=== PATIENT | female | born 1955 | race African-American/Black ===

== ENCOUNTER 2018-04-02 05:58 | Day surgery (SDC) | payer OTHER ==
[2018-03-25 16:46] VITALS: BMI 25.9
[2018-04-02] MEDS ORDERED: EPINEPHrine 1:1,000 1 MG/1 ML - 30ML VIAL (INJECTION) ONE (07:16)
[2018-04-02] MEDS ORDERED: methylPREDNISolone ACET (DEPO) 40 MG/1 ML VIAL ONE ×2 (07:16→08:38)
[2018-04-02] MEDS ORDERED: BUPIVACAINE HCL/PF 2.5 MG/ML - 30 ML VIAL IJ ONE (07:16)
[2018-04-02] MEDS ORDERED: MIDAZOLAM HCL 2 MG/2 ML SINGLE DOSE VIAL ONE ×2 (07:30→09:15)
[2018-04-02] MEDS ORDERED: ceFAZolin SODIUM 1 GM VIAL IVPB ONE (07:44)
[2018-04-02] MEDS ORDERED: SUCCINYLCHOLINE CHLORIDE 200 MG/10 ML VIAL ONE (07:45)
[2018-04-02] MEDS ORDERED: PROPOFOL 20 ML ONE ×2 (07:45)
[2018-04-02] MEDS ORDERED: LIDOCAINE HCL/PF 2% SDV 5ML VIAL ONE (07:52)
[2018-04-02] MEDS ORDERED: ONDANSETRON 4 MG/2 ML VIAL ONE ×2 (07:52→09:07)
[2018-04-02] MEDS ORDERED: ceFAZolin SODIUM 1 GM VIAL ONE (07:56)
[2018-04-02] MEDS ORDERED: DEXAMETHASONE SOD PHOSPHATE 4 MG/1 ML VIAL ONE (08:03)
[2018-04-02] MEDS ORDERED: methylPREDNISolone ACET (DEPO) 40 MG/1 ML VIAL NR ONE (08:32)
[2018-04-02] MEDS ORDERED: BUPIVACAINE HCL/PF 0.25% (2.5MG/ML) 10 ML VIAL IJ ONE (08:32)
[2018-04-02] MEDS ORDERED: oxyCODONE HCL 5 MG TABLET PO PRN (09:01)
[2018-04-02] MEDS ORDERED: ONDANSETRON 4 MG/2 ML VIAL IVPUSH PRN (09:01)
--- NOTE | 2018-04-02 09:13 | OP ---
Operative Note - Note: Operative Date: 04/02/18 Pre-Operative Diagnosis: Right knee medial meniscus tear. Right knee DJD Operation: Surgical arthroscopy right knee. Lateral plicae resection. Irrigation. Debridement Post-Operative Diagnosis: Other (No right knee medial meniscus tear; DJD; Lateral plicae) Surgeon: Jewel Middleton Window Cutter: Tahir Middleton Anesthesiologist/HEAD CHOPPER: Rosa Maria Ferreira Anesthesia: General Estimated Blood Loss (mls): 0 Fluid Volume Replaced (mls): 500 Operative Report Dictated: Yes
[2018-04-02] MEDS ORDERED: LACTATED RINGERS SOLUTION 1,000 ML IV SCH (09:15)
[2018-04-02] MEDS ORDERED: MONTELUKAST NA 10 MG TABLET PO SCH (10:00)
[2018-04-02] MEDS ORDERED: amLODIPine BESYLATE 5 MG TABLET (FP) PO SCH (10:00)
[2018-04-02] MEDS ORDERED: NEBIVOLOL 10 MG TABLET (FP) PO SCH (10:00)
[2018-04-02] MEDS ORDERED: DESVENLAFAXINE SUCCINATE 25 MG PO SCH (10:00)
[2018-04-02] MEDS ORDERED: BUDESONIDE/FORMETEROL FUMARATE 160/4.5 mcg INHALER IH SCH (10:00)
--- NOTE | 2018-04-02 10:00 | OP ---
DATE OF OPERATION: DATE OF DICTATION: 04/01/2018 SURGEON: Jewel Middleton MD INSIDE SALES MANAGER: Tahir Middleton MD PREOPERATIVE DIAGNOSIS: Medial meniscal tear, osteoarthritis knee. POSTOPERATIVE DIAGNOSIS: [place] level 1 osteoarthritis of right knee. ANESTHESIA: Spinal anesthesia with conscious sedation. OPERATION PERFORMED: 1. Arthroscopy to the right knee. 2. Right knee resection of plica. 3. Limited shaving chondroplasty. PROCEDURE: Patient correctly identified, brought to the operating room. Right lower extremity prepped, free draped in the routine manner with Betadine scrub solution, wiped with alcohol, and DuraPrep applied. The arthroscopic instrumentation was introduced into the knee. Diffuse fibrinous synovitis which was is mild noted. Synovitic material intruding into the medial joint surface on flexion/extension but on extension it subluxes itself out of the joint and is not an imposing force. The retropatellar surface revealed very subtle out of bridge level 1-2 changes. These were shaved using a [employer] shaver. The trochlea groove was normal. The lateral femoral condyle and medial lateral femoral condyle was normal. The tibial plateau, medially and laterally, were normal. The lateral compartment was difficult to negotiate but what was seen intraarticular of the lateral joint compartment appeared to be normal. Prolific synovitic material was noted throughout including ligamentum mucosa of the cruciate ligament. The medial compartment revealed the presence of normal joint line, normal medial meniscus, no tears noted. The popliteal hiatus was normal. The main finding was a thick plica on the lateral synovial area flapping up against the femoral condyle. This was resected using a Corrine shaver. The joint was thoroughly lavaged, instilled with Marcaine and steroid, and the portals were closed with 3-0 nylon. MD ZAK Montemayor/[id number] MTDD
[2018-04-02] MEDS ORDERED: oxyCODONE HCL 5 MG TABLET ONE (10:13)
[2018-04-02 10:34] VITALS: TEMP 98
[2018-04-02 13:18] VITALS: BP 112/79; PULSE 77
== END 2018-04-02 11:30 | disposition home or self-care (01) ==
LOC: FASU 05:58
PROVIDERS: ATTEND Orthopaedic Surgery Orthopaedic Surgery of the Spine
PROC: 0SBC4ZZ Excision of Right Knee Joint, Percutaneous Endoscopic Approach (ICD-10-PCS; 2018-04-02)
PROC: 0SBC4ZZ Excision of Right Knee Joint, Percutaneous Endoscopic Approach (ICD-10-PCS; principal; 2018-04-02 07:30)
DX: M17.11 Unilateral primary osteoarthritis, right knee (principal); M67.51 Plica syndrome, right knee
CPT/HCPCS: 94760

== ENCOUNTER 2019-01-26 16:58 | Inpatient (IN) | payer OTHER ==
[2019-01-20 11:38] VITALS: BMI 25.7
--- NOTE | 2019-01-26 12:45 | PN ---
Progress Note (short form) - Note Progress Note: 63F s/p RIGHT total knee replacement POD #0. -Pain control. -DVT PPx: -Chemical: Lovenox 30mg SQ BID x 6 weeks. -Mechanical: YOSHI's, SCD's. -Incentive spirometry q15 min. -PT/OT/Rehab, OOB. -WBAT RLE. -Antibiotics: Ancef q6h x 3 post op doses. -f/u post-op trial of void. -f/u drain output. -Diet as tolerated. -Keep dressing clean & dry. -Care per medical hospitalist team. -f/u [facility] [place] office Thu02/04/2019; call for appointment; . -Will follow. Jewel Middleton MD (Orthopaedic Surgery).
--- NOTE | 2019-01-26 12:47 | OP ---
Operative Note - Note: Operative Date: 01/26/19 Pre-Operative Diagnosis: Right knee DJD Operation: Right TKA Implants: Corrine Triathlon. Femur - 2. Tibia - 3. Poly - 11mm, PS. Patella - 27mm, symmetric Post-Operative Diagnosis: Same as Pre-op Surgeon: Jewel iMddleton Demand Inspector: Tahir Middleton Anesthesiologist/SHOE SALESMAN: Jesse Nicole Anesthesia: Spinal, Local Specimens Removed: Bone, soft tissue Estimated Blood Loss (mls): 0 Drains & Tubes with Location: 1 x deep HemoVac Fluid Volume Replaced (mls): 1,000 (Crystalloid) Operative Report Dictated: Yes
[2019-01-26] MEDS: ACETAMINOPHEN 325 MG TABLET (FP) PO SCH ×3 (15:03→20:19)
[~2019-01-26 16:58] MED LIST: ACETAMINOPHEN 325 MG TABLET (FP) ONE; BENZOIN/ALOE VERA/STORAX/TOLU 58 ML BOTTLE ONE; BUPIVACAINE HCL/PF 0.5% (5MG/ML) 10 ML VIAL ONE; BUPIVACAINE HCL/PF 2.5 MG/ML - 30 ML VIAL IJ ONE; BUPIVACAINE LIPOSOME/PF (EXPAREL) 266 MG/20 ML VIAL ONE; CEFAZOLIN IVPB ONE; EPINEPHrine/PF 1 MG/1 ML (1:1,000) AMPULE ONE; KETOROLAC TROMETHAMINE 30 MG/1 ML VIAL ONE; KETOROLAC TROMETHAMINE 60 MG/2 ML VIAL ONE; LACTATED RINGERS SOLUTION 1,000 ML IV SCH; MAG HYDROX/AL HYDROX/SIMETH 30 ML UNIT-DOSE CUP PO PRN; MAGNESIUM HYDROX 2400MG/30ML ORAL SUSPENSION 30 ML CUP PO PRN; MIDAZOLAM HCL 2 MG/2 ML SINGLE DOSE VIAL ONE; MORPHINE SULFATE 10 MG/1 ML *VIAL ONE; ONDANSETRON 4 MG/2 ML VIAL IVPUSH PRN; PROMETHAZINE HCL 25 MG/1 ML VIAL IVPUSH PRN; SODIUM CHLORIDE 0.9% P/F 10 ML VIAL IJ ONE; TRANEXAMIC ACID 1000 MG/10 ML VIAL IVPUSH ONE; VANCOMYCIN 1,000 MG in DEXTROSE 5%-WATER - 250 ML IVPB ONE; [UNRECOGNIZED DRUG - OTHER] IVPB ONE
[2019-01-26] MEDS: CEFAZOLIN 1 GM/D5W 1 GRAM/50 ML BAG IVPB SCH ×2 (17:48→23:16)
--- NOTE | 2019-01-26 20:44 | HP ---
Admitting History and Physical - Admission Chief Complaint: right knee pain. denies chest pain, palpitations, nausea, vomiting, diarrhea History Source: Patient Limitations to Obtaining History: No Limitations - Past Medical History Cardiovascular: Yes: HTN - Smoking History Smoking history: Never smoked Have you smoked in the past 12 months: No - Alcohol/Substance Use Hx Alcohol Use: No Home Medications - Allergies Allergies/Adverse Reactions: Allergies Allergy/AdvReac Type Severity Reaction Status Date / Time aspirin Allergy Severe WHEEZING Verified 01/26/19 09:08 MED FOR VERTIGO- IM,NOT Allergy Severe HEART Uncoded 01/26/19 09:08 MECLIZINE RACING seasonal Allergy Uncoded 01/26/19 09:08 - Home Medications Home Medications: Ambulatory Orders Amlodipine Besylate [Norvasc -] 5 mg PO DAILY 03/25/18 Budesonide/Formeterol Fumarate [SYMBICORT 160/4.5mcg -] 1 inh PO BID 03/25/18 Montelukast Na [Singulair -] 10 mg PO DAILY 03/25/18 Nebivolol HCl [Bystolic] 5 mg PO DAILY 03/25/18 Desvenlafaxine Succinate [Pristiq ER] 50 mg PO DAILY 04/02/18 Enoxaparin [Lovenox -] 30 mg SQ BID #84 disp.syrin 01/26/19 Family Disease History - Family Disease History Family History: Unremarkable Review of Systems - Review of Systems Constitutional: reports: No Symptoms Eyes: reports: No Symptoms HENT: reports: No Symptoms Neck: reports: No Symptoms Cardiovascular: reports: No Symptoms Respiratory: reports: Cough Gastrointestinal: reports: No Symptoms Genitourinary: reports: No Symptoms Breasts: reports: No Symptoms Reported Musculoskeletal: reports: Decreased ROM, Joint Pain Integumentary: reports: No Symptoms Neurological: reports: No Symptoms Endocrine: reports: No Symptoms Hematology/Lymphatic: reports: No Symptoms Psychiatric: reports: No Symptoms Pain Intensity: 7 Physical Examination Vital Signs: Vital Signs Temperature 97.4 F L 01/26/19 15:00 Pulse Rate 100 H 01/26/19 15:00 Respiratory Rate 16 01/26/19 15:00 Blood Pressure 124/59 L 01/26/19 15:00 O2 Sat by Pulse Oximetry (%) 100 01/26/19 15:00 Constitutional: Yes: Well Nourished, No Distress, Calm Eyes: Yes: WNL HENT: Yes: WNL Neck: Yes: WNL Cardiovascular: Yes: WNL Respiratory: Yes: WNL Gastrointestinal: Yes: WNL Renal/: Yes: WNL Musculoskeletal: Yes: Joint Stiffness Extremities: Yes: WNL Edema: No Peripheral Pulses WNL: Yes Integumentary: Yes: WNL Wound/Incision: Yes: Clean/Dry, Well Approximated Neurological: Yes: WNL ...Motor Strength: WNL Psychiatric: Yes: WNL Assessment/Plan 63F s/p RIGHT total knee replacement POD #0. cont pain management. incentive spirometry. side effects of pain meds discussed. stool softeners started to avoid opioid induced constipation. drain output to be monitored. -GI, DVT prophylaxis. -h/o asthma: cont bronchodilators. -HTN: cont amlodipine, nebivolol -ID: covered dayan-operatively with ancef. -PT/OT/OOB as tolerated -will f/u in AM.
[2019-01-26] MEDS: ENOXAPARIN NA (PORCINE) 30 MG/0.3 ML DISP.SYRIN SQ SCH (22:05)
[2019-01-26] MEDS: oxyCODONE HCL 10 MG SUSTAINED ACTING TABLET PO SCH (22:05)
[2019-01-26] MEDS: BUDESONIDE/FORMETEROL FUMARATE 160/4.5 mcg INHALER IH SCH (22:06)
[2019-01-26] MEDS: SENNOSIDES/DOCUSATE COMBO (SENNA PLUS) TABLET (UD) PO SCH (22:06)
[2019-01-26] MEDS ORDERED: PT OWN MED DRAWER 7, Y5N ONE (22:12)
--- NOTE | 2019-01-26 22:42 | OP ---
DATE OF OPERATION: 01/26/2019 SURGEON: Jewel Middleton MD FRUIT WORKER: Tahir Middleton MD; MEGHANA Gale PREOPERATIVE DIAGNOSIS: Fixed valgus tricompartment osteoarthritis, right knee. POSTOPERATIVE DIAGNOSIS: Fixed valgus tricompartment osteoarthritis, right knee. OPERATION PERFORMED: Right posterior stabilized total knee arthroplasty ( Corrine). ANESTHESIA: Peripheral nerve block with spinal anesthesia and conscious sedation. TOURNIQUET TIME: 75 minutes. OPERATION DETAILS: Patient correctly identified, brought to the operating room. The right lower extremity was prepped, free draped in the routine manner with Betadine scrub solution, wiped off with alcohol, DuraPrep applied. Timeout was called. Imaging was available for intraoperative evaluation. With the hip and knee flexed at 45 degrees, incision was made 3 inches above the superior pole of the patella and just distal to the tibial tubercle. Skin and subcutaneous tissue opened to expose the entire quadriceps mechanism. We used a sub-vastus approach. The medial proximal tibia was dissected off the proximal tibia and the incision curved around to leave 1 inch of border of the inferior border of vastus medialis and the soft tissue attachment to vastus medialis. This was the level of incision, and this extended all the way around to the intermuscular septum and linea aspera. With sharp dissection, the epimysium of vastus medialis was lifted off the actual bed of the muscle and the entire dissection extended all the way around to enable the entire quadriceps mechanism to be lifted and the patella subluxed laterally. A blunt Hohmann was placed in the plane between the undersurface of the vastus muscles and the shaft of the tibia. This exposed the suprapatellar pouch, which was incised using a Drew scissors, and the suprapatellar soft tissue, which was thickened, had chronic inflammatory tissue of the synovium of the suprapatellar pouch. It was all excised using a Bovie and removed. The knee was flexed. The entire top of the tibia was dissected using Bovie to achieve complete freeing of the proximal tibial bed. The cruciate ligaments had been transected and a blunt Hohmann placed behind the tibia, leaving the tibia forward. Using an extramedullary [employer] system, the tibial cut was made neutral to the tibia to receive a size 3 tibial tray. The appropriate bed was prepared with the starter drill and fin-shaped broach, which was seated into the bone bed via the appropriate jigs accordingly. The tibial components were placed neutral, that is, over the tibial tubercle, and an alignment renuka fitted at just through the middle of the talus. The femur was then attended to. The femoral starter drill was inserted just above the posterior cruciate ligament biased medially. The canal was drilled and the starter sword inserted for the distal femoral cut. This was set and maintained the joint line where it was; that is, an 8-mm cut off the bone and 4 degrees valgus set into the jig. The bone cuts were made to receive a size 2 femoral component. The appropriate chamfer cuts were made, and trialing of all components brought the knee from valgus into the neutral anatomical alignment and the mechanical axis reconstituted. The patella was tracking well, even without the patella resurfaced, as noted. Stability of the knee with an 11-mm spacer and trialing revealed excellent positioning, complete full stability in flexion and extension, and full range of movement as noted. Patellar tracking was normal and well maintained. The actual patella component was then seated by resecting the patellar bone from the retropatellar surface and the lugholes drilled to receive a size 27-mm patellar button. Size 2 femur utilized. Once this had been performed, and the trialing revealed a satisfactory evaluation, we went ahead and performed the definitive cementing. All extraneous cement, once the cement had been cured, was removed. The tissues were thoroughly lavaged, and a size 11-mm posterior stabilized polyethylene liner inserted. This gave excellent realignment of the knee in both the AP and lateral region. The wounds then we elected to close as follows: Sub- vastus repair with 1 Vicryl, subcutaneous 1 Vicryl, skin 3-0 Monocryl with Steri- Strips. Drainage: A 1/8-inch Hemovac to the sub-vastus bed, brought out laterally. A light bandage applied after the tissues were closed. Ancef 1 g given just at the time of release of the tourniquet, and 1 g of TXA (tranexamic acid) given as well. MD ZAK Montemayor/[id number] MTDBlanca
[2019-01-27] MEDS: oxyCODONE HCL 5 MG TABLET PO PRN ×2 (03:56→19:35)
[2019-01-27] MEDS: ACETAMINOPHEN 325 MG TABLET (FP) PO SCH ×4 (03:57→21:35)
[2019-01-27] MEDS: CEFAZOLIN 1 GM/D5W 1 GRAM/50 ML BAG IVPB SCH (07:01)
[2019-01-27] MEDS ORDERED: PT OWN MED DRAWER 7, Y5N ONE ×2 (07:24→08:41)
[2019-01-27 07:27] LABS: HEMATOCRIT 33.2 % (32.4-45.2); HEMOGLOBIN 10.9 GM/dl (10.7-15.3); MCH 28.6 pg (25.7-33.7); MCHC 32.9 g/dl (32.0-36.0); MEAN CELL VOLUME 86.9 fl (80-96); MEAN PLT VOLUME 9.4 fl (7.5-11.1); PLATELET COUNT 220 K/MM3 (134-434); RBC 3.82 M/mm3 (3.60-5.2); RDW 12.8 % (11.6-15.6); WHITE BLOOD COUNT 12.7 K/mm3 (4.0-10.8)
[2019-01-27] MEDS ORDERED: ALPRAZolam 1 MG TABLET PO STA (07:37)
[2019-01-27 07:40] LABS: CALCIUM 8.6 mg/dl (8.5-10); POTASSIUM 4.8 mmol/L (3.5-5.1)
--- NOTE | 2019-01-27 07:54 | SPA.POSTOP ---
- POST-OP NOTE POD #1 s/p Right Total knee replacement No acute events since surgical procedure per RN notes. Patient complaining of some SOB and anxiety, denies chest pain, admits she does suffer from panic attacks and that she has not been able to take her antianxiety in the hospital because we don't carry it. Pt states that she also has asthma, which she only uses a rescue inhaler. Pain management via prn meds. Denies n/v/f/c, CP Last Vital Signs Temp Pulse Resp BP Pulse Ox 98.5 F 58 L 18 100/50 L 100 01/27/19 04:00 01/27/19 07:20 01/27/19 07:20 01/27/19 07:20 01/27/19 07:15 Physical Exam General: appears anxious Pulm: lungs clear bilaterally Cor: Regular rhythm LE: Soft, non-tender bilat. SCD's bilat. RLE: dressing in place, clean. Drain present with sanguinous drainage, no weakness in foot. Output: 150 Problem List - Problems (1) Status post right knee replacement Assessment/Plan: Plan -will give pt a one time does of xanax and albuterol inhaler and see if symptoms improved. Pt informed she can bring in her Rx for Pristiq from home if she would prefer to take that over another anti-anxiety med -appreciate medicine recs -OOB/ambulate with PT -pain management -DVT ppx with lovenox as has ASA allergy Code(s): Z96.651 - PRESENCE OF RIGHT ARTIFICIAL KNEE JOINT
[2019-01-27] MEDS: BUDESONIDE/FORMETEROL FUMARATE 160/4.5 mcg INHALER IH SCH ×2 (09:08→21:37)
[2019-01-27] MEDS: SENNOSIDES/DOCUSATE COMBO (SENNA PLUS) TABLET (UD) PO SCH ×2 (10:08→21:34)
[2019-01-27] MEDS: ENOXAPARIN NA (PORCINE) 30 MG/0.3 ML DISP.SYRIN SQ SCH ×2 (10:08→21:35)
[2019-01-27] MEDS: PANTOPRAZOLE 40 MG TABLET (FP) PO SCH (10:08)
[2019-01-27] MEDS: oxyCODONE HCL 10 MG SUSTAINED ACTING TABLET PO SCH ×2 (10:09→21:34)
--- NOTE | 2019-01-27 10:09 | PN ---
Progress Note, Physician Chief Complaint: back pain - Current Medication List Current Medications: Active Medications Acetaminophen (Tylenol -) 650 mg PO Q6H [facility] Stop: 01/29/19 14:59 Last Admin: 01/27/19 03:57 Dose: 650 mg Al Hydroxide/Mg Hydroxide (Mylanta Oral Suspension -) 30 ml PO Q4H PRN PRN Reason: DYSPEPSIA Amlodipine Besylate (Norvasc -) 5 mg PO DAILY [facility] Budesonide/Formoterol Fumarate (Symbicort 160/4.5mcg -) 1 puff IH BID [facility] Last Admin: 01/26/19 22:06 Dose: 1 inh Enoxaparin Sodium (Lovenox -) 30 mg SQ BID [facility] Last Admin: 01/26/19 22:05 Dose: 30 mg Magnesium Hydroxide (Milk Of Magnesia -) 30 ml PO PRN PRN PRN Reason: CONSTIPATION Montelukast Sodium (Singulair -) 10 mg PO HS [facility] Nebivolol (Bystolic -) 5 mg PO DAILY [facility] Non-Formulary Medication (Desvenlafaxine Succinate [Pristiq]) 50 mg PO DAILY [facility] Ondansetron HCl (Zofran Injection) 4 mg IVPUSH Q6H PRN PRN Reason: NAUSEA Oxycodone HCl (Roxicodone -) 5 mg PO Q3H PRN PRN Reason: PAIN LEVEL 1-5 Last Admin: 01/27/19 03:56 Dose: 5 mg Oxycodone HCl (Roxicodone -) 10 mg PO Q3H PRN PRN Reason: PAIN LEVEL 6-10 Oxycodone HCl (Oxycontin -) 10 mg PO BID [facility] Stop: 01/29/19 14:52 Last Admin: 01/26/19 22:05 Dose: 10 mg Pantoprazole Sodium (Protonix -) 40 mg PO DAILY [facility] Senna/Docusate Sodium (Pericolace -) 2 tablet PO BID [facility] Last Admin: 01/26/19 22:06 Dose: 2 tablet - Objective Vital Signs: Vital Signs Temperature 98.5 F 01/27/19 04:00 Pulse Rate 58 L 01/27/19 07:20 Respiratory Rate 18 01/27/19 07:20 Blood Pressure 100/50 L 01/27/19 07:20 O2 Sat by Pulse Oximetry (%) 100 01/27/19 07:15 Constitutional: Yes: Well Nourished, No Distress Eyes: Yes: WNL HENT: Yes: WNL Neck: Yes: WNL Cardiovascular: Yes: WNL Respiratory: Yes: WNL Gastrointestinal: Yes: WNL Genitourinary: Yes: WNL Musculoskeletal: Yes: Back Pain Extremities: Yes: WNL Edema: No Peripheral Pulses WNL: Yes Integumentary: Yes: WNL Wound/Incision: Yes: Clean/Dry, Well Approximated Neurological: Yes: WNL Psychiatric: Yes: WNL Labs: CBC, BMP 01/27/19 07:15 01/27/19 07:15 Assessment/Plan 63F s/p RIGHT total knee replacement POD #1. cont pain management. incentive spirometry. side effects of pain meds discussed. stool softeners started to avoid opioid induced constipation. drain output to be monitored. -GI, DVT prophylaxis. -h/o asthma: cont bronchodilators. -HTN: cont amlodipine, nebivolol -ID: covered dayan-operatively with ancef. -PT/OT/OOB as tolerated. to start today. -will f/u in AM. hopefully will DC home tomorrow.
--- NOTE | 2019-01-27 11:07 | PN ---
Progress Note (short form) - Note Progress Note: 63F POD1 s/p R TKR under spinal anesthetic with peripheral nerve blocks. Pt states that pain is well controlled and reports no anesthetic complications. AVSS. Motor and sensory intact in bilateral lower extremities. Continue current regimen.
[2019-01-27] MEDS: PATIENT'S OWN MEDICATION (NON-FORMULARY) (Desvenlafaxine Succinate [Pristiq] 50 MG) PO SCH (12:39)
[2019-01-27] MEDS: NEBIVOLOL 5 MG TABLET (FP) PO SCH (12:39)
[2019-01-27] MEDS: amLODIPine BESYLATE 5 MG TABLET (FP) PO SCH (12:41)
[2019-01-27] MEDS: MONTELUKAST NA 10 MG TABLET PO SCH (21:34)
[2019-01-28] MEDS: oxyCODONE HCL 5 MG TABLET PO PRN ×3 (00:08→06:02)
[2019-01-28] MEDS: ACETAMINOPHEN 325 MG TABLET (FP) PO SCH ×5 (03:00→21:35)
[2019-01-28 07:42] LABS: HEMATOCRIT 29.5 % (32.4-45.2); HEMOGLOBIN 9.5 GM/dl (10.7-15.3); MCH 27.9 pg (25.7-33.7); MCHC 32.3 g/dl (32.0-36.0); MEAN CELL VOLUME 86.3 fl (80-96); MEAN PLT VOLUME 9.5 fl (7.5-11.1); PLATELET COUNT 201 K/MM3 (134-434); RBC 3.41 M/mm3 (3.60-5.2); RDW 12.8 % (11.6-15.6); WHITE BLOOD COUNT 10.3 K/mm3 (4.0-10.8)
--- NOTE | 2019-01-28 09:24 | PN ---
Progress Note (short form) - Note Progress Note: POD#2 Pt without any complaints of SOB/CP. OOB to chair this am. Tolerating a diet. Had pain overnight but now improved. Vital Signs Period Temp Pulse Resp BP Sys/Renee Pulse Ox Last 24 Hr 98 F-99.6 F 72-98 16-20 100-107/47-50 94-95 HEMANTH: 30-100-10ml GEN: A&0x3, NAD CV: RRR Lungs: CTA b/l anterioly ABD: soft, non-distended, non-tender LE: b/l LE soft, no calf tenderness. YOSHI/SCDs in place b/l. Operative surgical dressing c/d/i. Hemovac drain removed with tip intact. Pressure dressing and Diallo wrap applied. Neuro: 5/5 dorsi/plantar/EHL b/l. CBC, BMP //19 07:15 08// 07:15 A/P: 63 yo female s/p R TKA, POD#2 Discharge planning for today to home Will needs lovenox for DVT treatment at home. lovenox 30 mg BID,VNS. OOB and ambulate with PT Oral pain medications as needed Stool softners D/w Dr. Jewel Middleton
[2019-01-28] MEDS: SENNOSIDES/DOCUSATE COMBO (SENNA PLUS) TABLET (UD) PO SCH ×2 (10:40→21:34)
[2019-01-28] MEDS: BUDESONIDE/FORMETEROL FUMARATE 160/4.5 mcg INHALER IH SCH ×2 (10:40→21:34)
[2019-01-28] MEDS: PANTOPRAZOLE 40 MG TABLET (FP) PO SCH (11:29)
[2019-01-28] MEDS: oxyCODONE HCL 10 MG SUSTAINED ACTING TABLET PO SCH (11:29)
[2019-01-28] MEDS: PATIENT'S OWN MEDICATION (NON-FORMULARY) (Desvenlafaxine Succinate [Pristiq] 50 MG) PO SCH (11:30)
[2019-01-28] MEDS: ENOXAPARIN NA (PORCINE) 30 MG/0.3 ML DISP.SYRIN SQ SCH ×2 (11:30→21:35)
[2019-01-28] MEDS ORDERED: PT OWN MED DRAWER 7, Y5N ONE (11:32)
[2019-01-28] MEDS: NEBIVOLOL 5 MG TABLET (FP) PO SCH (11:34)
--- NOTE | 2019-01-28 14:04 | PN ---
Progress Note, Physician Chief Complaint: dizziness, fatigue - Current Medication List Current Medications: Active Medications Acetaminophen (Tylenol -) 650 mg PO Q6H [facility] Stop: 01/29/19 14:59 Last Admin: 01/28/19 09:22 Dose: 650 mg Al Hydroxide/Mg Hydroxide (Mylanta Oral Suspension -) 30 ml PO Q4H PRN PRN Reason: DYSPEPSIA Budesonide/Formoterol Fumarate (Symbicort 160/4.5mcg -) 1 puff IH BID [facility] Last Admin: 01/27/19 21:37 Dose: 1 puff Enoxaparin Sodium (Lovenox -) 30 mg SQ BID [facility] Last Admin: 01/28/19 11:30 Dose: 30 mg Magnesium Hydroxide (Milk Of Magnesia -) 30 ml PO PRN PRN PRN Reason: CONSTIPATION Montelukast Sodium (Singulair -) 10 mg PO HS [facility] Last Admin: 01/27/19 21:34 Dose: 10 mg Non-Formulary Medication (Desvenlafaxine Succinate [Pristiq]) 50 mg PO DAILY [facility] Last Admin: 01/27/19 12:39 Dose: 50 mg Ondansetron HCl (Zofran Injection) 4 mg IVPUSH Q6H PRN PRN Reason: NAUSEA Oxycodone HCl (Roxicodone -) 5 mg PO Q3H PRN PRN Reason: PAIN LEVEL 1-5 Last Admin: 01/27/19 19:35 Dose: 5 mg Oxycodone HCl (Roxicodone -) 10 mg PO Q3H PRN PRN Reason: PAIN LEVEL 6-10 Last Admin: 01/28/19 06:02 Dose: 10 mg Oxycodone HCl (Oxycontin -) 10 mg PO BID [facility] Stop: 01/29/19 14:52 Last Admin: 01/28/19 11:29 Dose: 10 mg Pantoprazole Sodium (Protonix -) 40 mg PO DAILY [facility] Last Admin: 01/28/19 11:29 Dose: 40 mg Senna/Docusate Sodium (Pericolace -) 2 tablet PO BID [facility] Last Admin: 01/27/19 21:34 Dose: 2 tablet - Objective Vital Signs: Vital Signs Temperature 99.6 F 01/28/19 03:00 Pulse Rate 98 H 01/28/19 03:00 Respiratory Rate 20 01/28/19 09:00 Blood Pressure 107/47 L 01/28/19 03:00 O2 Sat by Pulse Oximetry (%) 95 01/28/19 09:00 Constitutional: Yes: Mild Distress Eyes: Yes: WNL HENT: Yes: WNL Neck: Yes: WNL Cardiovascular: Yes: WNL Respiratory: Yes: WNL Gastrointestinal: Yes: WNL Genitourinary: Yes: WNL Musculoskeletal: Yes: Joint Stiffness Extremities: Yes: WNL Edema: No Peripheral Pulses WNL: Yes Integumentary: Yes: WNL Wound/Incision: Yes: Clean/Dry, Well Approximated Neurological: Yes: WNL Labs: CBC, BMP 01/28/19 07:15 01/27/19 07:15 Assessment/Plan 63F s/p RIGHT total knee replacement POD #2. cont pain management. incentive spirometry. side effects of pain meds discussed. stool softeners started to avoid opioid induced constipation. drain output to be monitored. -GI, DVT prophylaxis. -h/o asthma: cont bronchodilators. -ID: covered dayan-operatively with ancef. -PT/OT/OOB as tolerated. to start today. -Pt was for DC home today but she is very unsteady and drowsy. nearly fell while ambulating with walker and had to be supported by staff. BP is soft. BP meds held. Pain med dosing reduced. I do not feel comfortable sending her home today. discussed with family at bedside and medical staff. hopefully will DC home tomorrow.
--- NOTE | 2019-01-28 15:45 | PATH ---
Surgical Pathology Report Patient Name: KATHY DESAI [facility]. Rec. #: [id number] /Age/Gender: 1955 (Age: 63) / F Account: <[id number]> Location: [facility] Taken: 01/26/2019 Received: 01/26/2019 Reported: 01/28/2019 Physicians: Jewel Middleton M.D. Specimen(s) Received RIGHT KNE BONES Clinical History Right knee osteoarthritis Final Diagnosis BONE, KNEE, RIGHT, TOTAL KNEE ARTHROPLASTY: BONE WITH DEGENERATIVE JOINT DISEASE AND REACTIVE SYNOVIUM. Electronically Signed Lakesha Plummer M.D. Gross Description Received in formalin labeled "right knee bone," is a 13.5 x 10.5 x 2.0 cm aggregate of multiple portions of bone and soft tissue. The tibial plateau measures 7.0 x 4.8 x 1.9 cm. No areas of eburnation are identified. The articular surfaces are billings-yellow and focally granular. The underlying trabecular bone is yellow and hard. [employer] sections are submitted in one cassette, following decalcification. 01/27/[address] [facility]01/27/2019
[2019-01-28] MEDS: amLODIPine BESYLATE 5 MG TABLET (FP) PO SCH (17:35)
[2019-01-28] MEDS: MONTELUKAST NA 10 MG TABLET PO SCH (21:34)
[2019-01-29] MEDS: ACETAMINOPHEN 325 MG TABLET (FP) PO SCH ×3 (05:24→10:00)
[2019-01-29] MEDS ORDERED: PT OWN MED DRAWER 7, Y5N ONE (09:13)
[2019-01-29] MEDS: PATIENT'S OWN MEDICATION (NON-FORMULARY) (Desvenlafaxine Succinate [Pristiq] 50 MG) PO SCH (09:16)
[2019-01-29] MEDS: SENNOSIDES/DOCUSATE COMBO (SENNA PLUS) TABLET (UD) PO SCH (09:17)
[2019-01-29] MEDS: ENOXAPARIN NA (PORCINE) 30 MG/0.3 ML DISP.SYRIN SQ SCH (09:17)
[2019-01-29] MEDS: BUDESONIDE/FORMETEROL FUMARATE 160/4.5 mcg INHALER IH SCH (09:17)
[2019-01-29] MEDS: PANTOPRAZOLE 40 MG TABLET (FP) PO SCH (09:17)
--- NOTE | 2019-01-29 12:17 | DS ---
"Physical Examination Vital Signs: Vital Signs Temperature 99.9 F H 01/29/19 10:00 Pulse Rate 97 H 01/29/19 10:00 Respiratory Rate 18 01/29/19 10:00 Blood Pressure 129/80 01/29/19 10:00 O2 Sat by Pulse Oximetry (%) 98 01/29/19 10:00 Constitutional: Yes: Well Nourished, No Distress Eyes: Yes: WNL HENT: Yes: WNL Neck: Yes: WNL Cardiovascular: Yes: WNL Respiratory: Yes: WNL Gastrointestinal: Yes: WNL ...Rectal Exam: Yes: Sphincter Tone Normal Renal/: Yes: WNL Musculoskeletal: Yes: Joint Stiffness Extremities: Yes: WNL Edema: No Peripheral Pulses WNL: Yes Integumentary: Yes: WNL Wound/Incision: Yes: Clean/Dry, Well Approximated Neurological: Yes: WNL Labs: CBC, BMP 01/28/19 07:15 01/27/19 07:15 Discharge Summary Reason For Visit: RIGHT KNEE OSTEOARTHRITIS Current Active Problems Status post right knee replacement (Acute) Hospital Course: 63F s/p RIGHT total knee replacement POD #3. cont pain management. incentive spirometry. side effects of pain meds discussed. stool softeners started to avoid opioid induced constipation. drain output to be monitored. -GI, DVT prophylaxis. -h/o asthma: cont bronchodilators. -HTN: will hold amlodipine due to hypotensive episodes. -ID: covered dayan-operatively with ancef. assessment and plan discussed with pt labs and meds reviewed 40 min Condition: Good - Instructions Diet, Activity, Other Instructions: Dr. Middleton Discharge Instructions for Knee Replacement Post Operative Instructions Physical activity Physical Therapist will come to your home for the first 5 days. You will be set up with outpatient PT at your first post-operative visit. Use assistive devices for ambulation at all times. Weight bearing as tolerated on your surgical side. Do not put pillow under knee. May put pillow under heel. Wound care Leave your surgical dressing in place. Do not change the dressing until seen by your surgeon in the office. No baths or showers. Do not submerge your incision. Do not apply any ointments or lotions to your incision. Please call the office if your dressing is soiled/dirty or is falling off. Apply Graduated Compression Stockings (TEDS) to both lower extremities - remove daily for hygiene ONLY. Diet There are no dietary restrictions. Eat healthy, high-fiber foods. Drink 6 to 8 glasses of liquid each day. This will assist in keeping your bowels are regular. Pain management Any pain prescription medication ordered should be taken as prescribed for moderate to severe pain. Do not take additional Tylenol while taking Percocet. To prevent blood clots: take Lovenox 30mg (syringe- SQ) twice daily for 6 weeks time to prevent blood clots. Call Dr. Middleton for any of the following: Severe pain not relieved by medication Fever of 101 or higher Excessive bleeding or drainage on dressing Inability to urinate If you experience chest pain or shortness of breath, please seek emergency care immediately. Please call the office at to confirm your post-op appointment for the week following surgery. [facility]IN[facility] HOST/HOSTESS: This report was requested by: Bernardo Ward | Reference #: [id number] - Home Medications Comprehensive Discharge Medication List: Ambulatory Orders Amlodipine Besylate [Norvasc -] 5 mg PO DAILY 03/25/18 Budesonide/Formeterol Fumarate [SYMBICORT 160/4.5mcg -] 1 inh PO BID 03/25/18 Montelukast Na [Singulair -] 10 mg PO DAILY 03/25/18 Nebivolol HCl [Bystolic] 5 mg PO DAILY 03/25/18 Desvenlafaxine Succinate [Pristiq ER] 50 mg PO DAILY 04/02/18 Enoxaparin [Lovenox -] 30 mg SQ BID #84 disp.darylin 01/26/19"
[2019-01-29 14:34] VITALS: BP 123/55; PULSE 94; TEMP 99.1
== END 2019-01-29 16:32 | disposition home or self-care (01) | DRG 470 ==
LOC: FASUSAT 16:58 → FM/S 16:58 → UNDOADMOB 17:07 → FM/S 17:07
PROVIDERS: ADMIT Orthopaedic Surgery Orthopaedic Surgery of the Spine; ATTEND Internal Medicine
PROC: 0SRC0J9 Replacement of Right Knee Joint with Synthetic Substitute, Cemented, Open Approach (ICD-10-PCS; principal; 2019-01-26 11:20)
DX: M17.11 Unilateral primary osteoarthritis, right knee (principal); I10 Essential (primary) hypertension; J45.909 Unspecified asthma, uncomplicated
CPT/HCPCS: 36415; 73560-TC-RT-FY; 80048; 85027; 88304-TC; 88311-TC; 94760; 97116-GP; 97163-GP